=== PATIENT | male | born 1970 | race Caucasian/White ===

== ENCOUNTER 2023-07-20 09:35 | Emergency (ER) | payer MEDICAID, SELFPAY ==
[~2023-07-20] VITALS: Ht 198.1 cm; Wt 102.3 kg
[2023-07-20] MEDS: ONDANSETRON 4MG 2ML VIAL IV ONE (10:37)
[2023-07-20] MEDS: MORPHINE 4 MG/ML 1ML VIAL IV PRN (10:38)
[2023-07-20] MEDS ORDERED: ISOVUE-370 76% 100ML VIAL As Ordered ONE (10:40)
[2023-07-20] MEDS: niCARdipine IV 40 MG in IV 1 EA IV SCH (11:03)
[2023-07-20 11:11] LABS: BASO % 0.2 % (0.0-1.0); HEMOGLOBIN 13.8 g/dl (13.5-17.5); LYMPH # 0.6 10^3/uL (1.5-5.0); LYMPH % 5.2 % (24.0-44.0); MEAN CORPUSCULAR HEMOGLOBIN 30.3 pg (27.0-33.0); MEAN CORPUSCULAR HGB CONC 34.5 g/dl (32.0-36.5); MEAN CORPUSCULAR VOLUME 87.7 fl (80.0-96.0); MONO # 0.5 10^3/uL (0.0-0.8); MONO % 4.3 % (2.0-8.0); NEUTROPHILS # 10.8 10^3/uL (1.5-8.5); NEUTROPHILS % 90.1 % (36.0-66.0); PLATELET COUNT, AUTOMATED 175 10^3/uL (150-450); RED BLOOD COUNT 4.56 10^6/uL (4.30-6.10)
[2023-07-20 11:39] LABS: LIPASE 22 U/L (12-53)
[2023-07-20 11:42] LABS: ALBUMIN 3.9 G/DL (3.2-5.2); ALKALINE PHOSPHATASE 71 U/L (46-116); ALT/SGPT 28 U/L (7.0-40); AST/SGOT 18 U/L (<34); BILIRUBIN,DIRECT 0.2 MG/DL (<0.4); BILIRUBIN,TOTAL 0.8 MG/DL (0.3-1.2); BLOOD UREA NITROGEN 21 MG/DL (9-23); CALCIUM LEVEL 8.9 MG/DL (8.5-10.1); CARBON DIOXIDE LEVEL 32 MMOL/L (20-31); CHLORIDE LEVEL 106 MMOL/L (98-107); CREATININE FOR GFR 0.95 MG/DL (0.70-1.30); GLOMERULAR FILTRATION RATE > 60.0 (>56); GLUCOSE, FASTING 140 MG/DL (60-100); POTASSIUM SERUM 3.3 MMOL/L (3.5-5.1); SODIUM LEVEL 143 MMOL/L (136-145); TOTAL PROTEIN 6.4 G/DL (5.7-8.2)
[2023-07-20] MEDS: ESMOLOL HCL 2,000 MG in IV 1 EA IV SCH (11:43)
[2023-07-20 11:45] LABS: RSV AMPLIFICATION NEGATIVE (NEGATIVE)
[2023-07-20 11:46] LABS: INR 0.99; PROTHROMBIN TIME 12.8 SECONDS (12.5-14.5)
[2023-07-20] MEDS: HYDROMORPHONE HCL 0.5 MG/ 0.5 ML SYRINGE IV PRN (11:59)
[2023-07-20 12:20] VITALS: BP 130/61; TEMP 98
== END 2023-07-20 12:27 | disposition short-term general hospital (02) ==
LOC: M ED 09:35
DX: I71.00 Dissection of unspecified site of aorta (principal); F10.10 Alcohol abuse, uncomplicated; R00.1 Bradycardia, unspecified
CPT/HCPCS: 71275; 74177; 80047; 80048; 80076; 83690; 85025; 85610; 87631; 93005; 93041; 96365; 96375; 99291; J1170; J1805; J2405; Q9967